=== PATIENT | female | born 1945 | race African-American/Black ===

== ENCOUNTER 2017-03-11 18:00 | Inpatient (IN) ==
[2017-03-11 19:04] LABS: MANUAL DIFF NEEDED? NO
[2017-03-11 19:06] LABS: BASO% 0.5 % (0.0-0.8); EOS# 0.11 X1000 (0.0-0.7); EOS% 1.3 % (0.0-10.0); HEMATOCRIT 39.2 % (37.0-47.0); HEMOGLOBIN 12.5 g/dL (12.0-16.0); IMM GRAN# 0.13 X1000 (0.0-0.04); IMM GRAN% 1.6 % (0.0-0.5); LYMPH# 3.54 X1000 (1.2-3.4); LYMPH% 42.6 % (20.5-51.1); MCH 29.7 PG (27-31); MCHC 31.9 g/dL (33-37); MCV 93.1 FL (81-99); MONO# 0.92 X1000 (0.11-0.59); MONO% 11.1 % (1.7-9.3); MPV 11.3 FL (7.4-10.4); NEUT% 42.9 % (42.2-75.2); PLT 165 X1000 (130-400); RBC 4.21 XMIL (4.2-5.4)
[2017-03-11 19:23] LABS: ALBUMIN 3.3 g/dL (3.5-5.0); POTASSIUM 4.2 mmol/L (3.5-5.1); TOTAL BILIRUBIN 0.16 mg/dL (0.20-1.00); TOTAL PROTEIN 6.9 g/dL (6.3-8.3)
[2017-03-11] MEDS ORDERED: NS 1,000 ML IV ONE (19:39)
[2017-03-11 20:32] LABS: URINE MICRO REVIEW NEEDED? NO; URINE SOURCE CATH
[2017-03-11 20:37] LABS: BILIRUBIN URINE SMALL (NEGATIVE); BLOOD URINE SMALL (NEGATIVE); COLOR YELLOW; GLUCOSE URINE 150 mg/dL (NEGATIVE); LEUKOCYTES URINE LARGE (NEGATIVE); NITRITE URINE NEGATIVE (NEGATIVE); PH URINE 5.5; PROTEIN URINE 30 mg/dL (NEGATIVE); SP GRAVITY URINE 1.024; TURBIDITY URINE HAZY (CLEAR); UROBILINOGEN URINE NORMAL (NORMAL)
[2017-03-11 20:39] LABS: UR EPITHELIAL CELLS <10 /HPF (<10); URINE BACTERIA 1+ /HPF; URINE CULTURE NEEDED? YES; URINE RBC 20-40 /HPF (<10); URINE WBC TNTC /HPF (<10)
[2017-03-11] MEDS ORDERED: ROCEPHIN 1 GM/NS 1 GM/50 ML IVPB IV ONE ×2 (20:47→20:48)
[2017-03-12] MEDS ORDERED: ZOFRAN IV PRN (01:03)
[2017-03-12] MEDS: NS 1,000 ML IV SCH ×2 (04:29→17:52)
--- NOTE | 2017-03-12 05:58 | HISTORY AND PHYSICAL ---
PRIMARY CARE PHYSICIAN: Dr. Argueta. CHIEF COMPLAINT: Mental status changes. HISTORY OF PRESENTING ILLNESS: A 72-year-old female with a history of diabetes mellitus type 2, dementia, GERD, and hypothyroidism, who is a resident of [facility]. Was brought to the emergency department due to mental status changes. Patient could not offer much history, and most of the history was obtained from her previous records. However, patient was able to deny having any headache, fever, chills, chest pain, or shortness of breath. The patient was evaluated in the ER. She was found to have a florid UTI. She was put on antibiotics, and she will need hospitalization for further management. PAST MEDICAL HISTORY: Includes diabetes mellitus type 2, GERD, hypothyroidism, dementia. PAST SURGICAL HISTORY: None. ALLERGIES: No known drug allergies. CURRENT MEDICATIONS: As listed in the MAR. SOCIAL HISTORY: No history of smoking, alcohol, or illicit drug use. FAMILY HISTORY: No history of coronary artery disease. REVIEW OF SYSTEMS: Limited, due to patient being confused. PHYSICAL EXAMINATION: GENERAL: Cooperative, friendly female. She is resting comfortably. VITAL SIGNS: Temperature 98.1 degrees, pulse 59, respirations 16, blood pressure 127/73. She is saturating 100%. HEENT: Atraumatic, normocephalic. Extraocular movements intact. NECK: No masses. CHEST: Clear to auscultation. CARDIOVASCULAR: Regular rate and rhythm. ABDOMEN: Soft. Positive bowel sounds. EXTREMITIES: No edema. NEUROLOGIC: She is alert. However, she is not oriented to person, time, or place. GENITOURINARY: No bladder distention. SKIN: Warm. LABORATORIES AND STUDIES: UA shows +1 bacteria and leukocytes. WBCs 8.31, hemoglobin 12.5, hematocrit 39.2, platelets 165,000. Sodium 147, potassium 4.2, chloride 105, CO2 27, BUN is 31, creatinine is 2.3, glucose is 134. ASSESSMENT: A 72-year-old female with a history of diabetes mellitus type 2, GERD, hypothyroidism, and dementia, who presented to the emergency department due to worsening confusion. She was evaluated in the ER. She was found to have a urinary tract infection, and was in renal failure. The patient will need hospitalization for further management. 1. Altered mental status, multifactorial, probably secondary to infection versus underlying dementia. 2. Urinary tract infection. 3. Acute kidney injury, possibly volume depletion. 4. Diabetes mellitus type 2. 5. Dementia. PLAN: 1. We will admit patient to medical floor with telemetry. 2. Continue with neurologic checks. 3. We will check urine cultures and blood cultures and start patient on IV antibiotics. 4. We will monitor renal function. 5. Put patient on sliding scale insulin regimen. 6. We will resume her home medications. 7. We will put patient on DVT prophylaxis with SCDs. 8. We will continue to follow and reassess. cc: Maxime Hsu MD
[2017-03-12] MEDS: HUMULIN R SUBQ SCH ×2 (06:09→13:04)
--- NOTE | 2017-03-12 07:57 | Diag Imaging Result Document ---
PROCEDURE NAME: CHEST-PORTABLE - 03/11/2017 AP PORTABLE CHEST AT 1850 HOURS: FINDINGS: There is no evidence of acute cardiac or pulmonary disease. Compared to 04/10/2016, there has been no significant change considering differences in technique and inspiration. IMPRESSION: Stable chest.
--- NOTE | 2017-03-12 08:41 | Diag Imaging Result Document ---
PROCEDURE NAME: ABDOMEN/PELVIS W/O CONTRAST - 03/12/2017 CT ABDOMEN AND PELVIS WITHOUT ORAL OR INTRAVENOUS CONTRAST: COMPARISON: 12/14/2012. FINDINGS: The spleen is not enlarged. There are scattered splenic granulomata. There are several small calcified stones within the gallbladder. No adjacent inflammation. Normal adrenal glands. Normal noncontrasted pancreas and liver. No perinephric inflammation. No renal stones. No hydronephrosis. No aortic aneurysm. There is stool throughout the colon. Normal appendix. No abscess. Prominent stool within the rectum. No free air. The urinary bladder is moderately distended and appears normal. The uterus is small. No pelvic mass. IMPRESSION: 1. Constipation and possible fecal impaction. 2. Cholelithiasis.
--- NOTE | 2017-03-12 08:44 | Diag Imaging Result Document ---
PROCEDURE NAME: NECK W/O CONTRAST - 03/12/2017 CT NECK WITHOUT CONTRAST: FINDINGS: There is a large right oropharyngeal mass measuring approximately 2.5 x 3.0 cm. I believe this involves the right tonsil. There are enlarged lymph nodes beneath the angle of the mandible on the right measuring up to 2.8 cm. Normal parotid and submandibular glands. Normal larynx and thyroid. No sinus opacification. IMPRESSION: Suboptimal exam without contrast, but there is a right-sided mass with adenopathy. Further workup recommended. [facility]
--- NOTE | 2017-03-12 09:53 | PROGRESS NOTE ---
DATE: 03/12/2017 SUBJECTIVE: Ms. Chavez is a 72-year-old, patient, resident of [facility], admitted with altered mental status. The patient was found to have elevated blood sugar at the long-term; it was more than 500. We gave her sliding-scale insulin. Her blood sugar came down to around 285. Nurse called me. The patient had altered mental status, increasing lethargy. We decided to send patient to the hospital. In the emergency room, the patient found to have acute kidney injury, significant urinary tract infection. The patient was getting treatment for acute pharyngitis. She is still complaining of sore throat. Mild cough. No expectoration. The patient does have dementia history part limited, vague abdominal pain. No nausea or vomiting. Denied any diarrhea. No typical chest pain or palpitation. Admission history and physical noted. PAST MEDICAL HISTORY: Significant for diabetes mellitus, hypertension, osteoarthritis, gastritis and reflux disease, dementia. MEDICATIONS: Noted. OBJECTIVE: Vital signs: Reviewed. Neck: Supple. No JVD. The patient does have tenderness right side of the neck in submandibular area. Uncooperative for pharyngeal exam. Neck: Supple. Lungs: Bilateral good air entry present. CVS: S1 and S2 heard. Abdomen: Soft, globular. Bowel sounds present. Vague tenderness left colonic area. No guarding or rigidity. Extremities: No cyanosis, clubbing. No acute DVT. CUSTOMER ACCOUNT EXECUTIVE: Alert, awake. Able to move all 4 limbs. ADMISSION LAB DATA: Revealed WBC count 8.31, hemoglobin 12.5, hematocrit 39.2, platelet count 165. BUN was 31, creatinine 2.3. Blood sugar results reviewed. Urinalysis did reveal significant UTI. CONSIDERATION: Patient admitted with delirium most likely due to urinary tract infection. The patient does have uncontrolled diabetes mellitus, acute kidney injury, abdominal pain with tenderness in the left colonic area. I am going to get CT scan of the abdomen and pelvis for further evaluation. The patient does have dementia, hypertension. PLAN: Admit the patient. IV hydration. GI and DVT prophylaxis. Monitor renal function. Overall plan discussed with the patient. Family member is not available. cc: Andrews Argueta MD
--- NOTE | 2017-03-12 15:20 | CONSULTATION ---
DATE OF CONSULTATION: 03/12/2017 HISTORY OF PRESENT ILLNESS: I was asked to see this patient regarding right tonsil lesion noted on CT scan. Patient states she has had a two-week history of sore throat and knot in her right neck. She is a poor historian with some confusion. She denies tobacco use. Denies dysphagia or odynophagia. Denies fever, night sweats, chills, or weight loss. PAST MEDICAL HISTORY: Reviewed. SOCIAL HISTORY: Reviewed. FAMILY HISTORY: Reviewed. REVIEW OF SYSTEMS: Noted. PHYSICAL EXAMINATION: Constitutional: Well-developed, well-nourished female. No distress. Face: Normal appearance. Oral cavity/pharynx: Right tonsil with neoplasia replacing tonsil. Normal extension beyond tonsillar fossa. Airway excellent. Remainder of mucosa appears normal. Neck: Enlarged, firm upper jugular chain nodes, right. IMPRESSION: Right tonsil neoplasia. I have discussed. Daughter is to call me this morning when she arrives for visit. We will discuss. Patient will need appointment at [facility], and I will ask daughter to call me at discharge and we will schedule appointment at [facility] for Ms. Chavez at that time. Thank you. Available if needed. cc: MD Andrews Espana MD
[2017-03-12] MEDS ORDERED: CATAPRES PO PRN (16:20)
[2017-03-12] MEDS ORDERED: MILK OF MAGNESIA PO PRN (16:20)
[2017-03-12] MEDS ORDERED: NORCO-5 PO PRN (16:20)
[2017-03-12] MEDS ORDERED: INSULIN PEN NEEDLES ONE (17:07)
[2017-03-12] MEDS: CELEXA PO SCH (17:20)
[2017-03-12] MEDS: EXELON 9.5MG/24HRS TD SCH (17:21)
[2017-03-12] MEDS: COZAAR PO SCH (17:21)
[2017-03-12] MEDS: PRILOSEC PO SCH (17:21)
[2017-03-12] MEDS: TENORMIN PO SCH (17:22)
[2017-03-12] MEDS: HUMALOG SUBQ SCH (20:36)
[2017-03-12] MEDS: ROCEPHIN 1 GM/NS 1 GM/50 ML IVPB IV SCH (20:37)
[2017-03-12] MEDS: DEPAKOTE PO SCH (20:37)
[2017-03-12] MEDS: COLACE PO SCH (20:38)
[2017-03-12] MEDS: COMTAN PO SCH (20:38)
[2017-03-12] MEDS: REMERON SOLTAB PO SCH (20:38)
[2017-03-12] MEDS: SINEMET 25/100 PO SCH (20:38)
[2017-03-12] MEDS: FOLIC ACID PO SCH (20:38)
[2017-03-12] MEDS: NAMENDA PO SCH (20:38)
[2017-03-12] MEDS: LEVEMIR SUBQ SCH (20:39)
[2017-03-12] MEDS: LYRICA PO SCH (20:39)
[2017-03-12] MEDS: LAMICTAL PO SCH (20:39)
[2017-03-12] MEDS ORDERED: STALEVO PO SCH (21:00)
[2017-03-13 05:41] LABS: MANUAL DIFF NEEDED? NO
[2017-03-13 05:47] LABS: BASO% 0.3 % (0.0-0.8); EOS# 0.08 X1000 (0.0-0.7); EOS% 1.2 % (0.0-10.0); HEMOGLOBIN 11.6 g/dL (12.0-16.0); IMM GRAN# 0.07 X1000 (0.0-0.04); LYMPH# 2.53 X1000 (1.2-3.4); LYMPH% 37.1 % (20.5-51.1); MCH 29.4 PG (27-31); MCHC 32.2 g/dL (33-37); MCV 91.4 FL (81-99); MONO# 0.73 X1000 (0.11-0.59); MONO% 10.7 % (1.7-9.3); MPV 12.1 FL (7.4-10.4); NEUT% 49.7 % (42.2-75.2); PLT 159 X1000 (130-400); RBC 3.94 XMIL (4.2-5.4)
[2017-03-13] MEDS: HUMALOG SUBQ SCH ×4 (06:09→22:05)
[2017-03-13] MEDS: SYNTHROID PO SCH (06:09)
[2017-03-13] MEDS: PRILOSEC PO SCH (06:09)
[2017-03-13] MEDS: NS 1,000 ML IV SCH ×2 (06:10→17:34)
[2017-03-13 06:19] LABS: AGAP 13; ALBUMIN 3.3 g/dL (3.5-5.0); ALKALINE PHOSPHATASE 66 U/L (32-104); BUN 13 mg/dL (8-22); CALCIUM 9.3 mg/dL (8.8-10.2); CHLORIDE 107 mmol/L (98-107); COSMO 293; GOT 17 U/L (10-30); GPT < 5 U/L (10-36); POTASSIUM 4.2 mmol/L (3.5-5.1); SODIUM 146 mmol/L (136-145); TCO2 26 mmol/L (25-35); TOTAL BILIRUBIN 0.23 mg/dL (0.20-1.00); TOTAL PROTEIN 7.3 g/dL (6.3-8.3)
[2017-03-13] MEDS: COZAAR PO SCH (09:26)
[2017-03-13] MEDS: LYRICA PO SCH ×2 (09:27→22:02)
[2017-03-13] MEDS: CENTRUM SILVER PO SCH (09:27)
[2017-03-13] MEDS: FOLIC ACID PO SCH ×2 (09:27→22:18)
[2017-03-13] MEDS: NORVASC PO SCH (09:27)
[2017-03-13] MEDS: CELEXA PO SCH (09:27)
[2017-03-13] MEDS: DEPAKOTE PO SCH ×2 (09:29→22:02)
[2017-03-13] MEDS: TENORMIN PO SCH (09:29)
[2017-03-13] MEDS: COLACE PO SCH ×2 (09:29→22:02)
[2017-03-13] MEDS: VITAMIN E PO SCH (09:30)
[2017-03-13] MEDS: NAMENDA PO SCH ×2 (09:30→22:01)
[2017-03-13] MEDS: LAMICTAL PO SCH ×2 (09:31→22:01)
[2017-03-13] MEDS: COMTAN PO SCH ×2 (09:32→22:01)
[2017-03-13] MEDS: SINEMET 25/100 PO SCH ×2 (09:32→22:02)
[2017-03-13] MEDS: EXELON 9.5MG/24HRS TD SCH (09:34)
--- NOTE | 2017-03-13 13:14 | PROGRESS NOTE ---
DATE: 03/13/2017 This is covering for Dr. Argueta, level 3. SUBJECTIVE: Interval history was reviewed. The patient is sitting at the bedside eating lunch. Patient does not need any assistance. The patient is demented, confused, and history is not reliable. She is a [facility] resident at [place] admitted to the hospital with altered mental status with underlying UTI and dehydration. REVIEW OF SYSTEMS: None reported. PAST MEDICAL HISTORY, PAST SURGICAL HISTORY, MEDICINES: Were reviewed. OBJECTIVE: Vital Signs: On physical examination afebrile. Vitals are stable. Intake and output positive 1.7 L. HEENT: Exam within normal limits. Unable to see the oral cavity. The patient does have right jugulodigastric lymph node, 2 cm, hard and palpable noted below and behind the angle of the mandible. Chest: Clear to auscultation. Heart: Sounds are regular. Belly is soft, obese, and nontender. Good bowel sounds. Extremities: Has antithrombotic stockings. Bunions are noted. Neurological exam: No obvious deficits seen. LABS/INVESTIGATIONS: CBC: White cell count 6.8, hematocrit 36, platelets 159. SMA 7: Sodium 146, potassium 4.2, chloride 107. BUN 13, creatinine 1.0, glucose 135. Liver function tests were normal. Urine cultures are positive for gram-negative rods. Blood cultures are pending. CT neck on 03/12/2017: Right-sided tonsillar mass with adenopathy. CT scan of the abdomen and pelvis: Constipation and gallstones. Chest x-ray: Stable. ASSESSMENT AND PLAN: 1. Altered mental status with underlying dementia, slowly improving. 2. History of Parkinson disease on levodopa oral twice daily and Comtan 200 mg oral twice daily. 3. Reactive depression on Celexa 20 mg daily. 4. Urinary tract infection. Follow up on the urine for culture and sensitivity. Currently receiving ceftriaxone 1 g every 24 hours. 5. Dehydration on intravenous fluids. If the sodium comes back normal, will decrease the intravenous fluids. 6. Dementia with underlying Parkinson disease on Namenda and Exelon patch. 7. Right tonsillar mass with jugular digastric lymph node seen by Dr. Sands. Will be followed as an outpatient. 8. Deep venous thrombosis prophylaxis with antithrombotic stockings. We will check the SMA 7 in the morning. Follow up on urine culture and sensitivity. No family was there at the bedside. LEVEL OF DOCUMENTATION: 35 minutes. cc: MD Andrews Rawls MD
[2017-03-13] MEDS: ROCEPHIN 1 GM/NS 1 GM/50 ML IVPB IV SCH (22:01)
[2017-03-13] MEDS: REMERON SOLTAB PO SCH (22:02)
[2017-03-13] MEDS: LEVEMIR SUBQ SCH (22:05)
[2017-03-14 06:23] LABS: AGAP 14; BUN 7 mg/dL (8-22); CALCIUM 8.8 mg/dL (8.8-10.2); CHLORIDE 109 mmol/L (98-107); COSMO 295; POTASSIUM 4.4 mmol/L (3.5-5.1); SODIUM 148 mmol/L (136-145); TCO2 25 mmol/L (25-35)
[2017-03-14] MEDS: SYNTHROID PO SCH (06:25)
[2017-03-14] MEDS: PRILOSEC PO SCH (06:25)
[2017-03-14] MEDS: NS 1,000 ML IV SCH (07:45)
[2017-03-14] MEDS: HUMALOG SUBQ SCH ×3 (07:45→17:01)
[2017-03-14] MEDS: COLACE PO SCH ×2 (10:12→22:56)
[2017-03-14] MEDS: COZAAR PO SCH (10:12)
[2017-03-14] MEDS: FOLIC ACID PO SCH ×2 (10:13→22:55)
[2017-03-14] MEDS: CENTRUM SILVER PO SCH (10:13)
[2017-03-14] MEDS: DEPAKOTE PO SCH ×2 (10:13→22:55)
[2017-03-14] MEDS: CELEXA PO SCH (10:14)
[2017-03-14] MEDS: LAMICTAL PO SCH ×2 (10:17→22:55)
[2017-03-14] MEDS: LYRICA PO SCH ×2 (10:18→22:56)
[2017-03-14] MEDS: TENORMIN PO SCH (10:18)
[2017-03-14] MEDS: VITAMIN E PO SCH (10:18)
[2017-03-14] MEDS: NAMENDA PO SCH ×2 (10:19→22:56)
[2017-03-14] MEDS: SINEMET 25/100 PO SCH ×2 (10:19→22:55)
[2017-03-14] MEDS: NORVASC PO SCH (10:19)
[2017-03-14] MEDS: COMTAN PO SCH ×2 (10:20→22:55)
[2017-03-14] MEDS: EXELON 9.5MG/24HRS TD SCH (10:22)
[2017-03-14] MEDS ORDERED: NS 1,000 ML IV SCH (13:24)
[2017-03-14] MEDS ORDERED: VANCOMYCIN IV PER PHARMACY MISC SCH (13:30)
--- NOTE | 2017-03-14 15:21 | PROGRESS NOTE ---
DATE: 03/14/2017 SUBJECTIVE: Patient is doing very well. No complaints for the last 24 hours. REVIEW OF SYSTEMS: None reported. Eating very well without assistance. OBJECTIVE: Vital signs: Afebrile. Pulse is 66, blood pressure is 150/78. HEENT: Within normal limits. Neck: Supple. No lymphadenopathy. Chest: Clear. Heart: Sounds are regular. Abdomen: Belly is soft, nontender. Good bowel sounds. Extremities: No peripheral edema, cyanosis, clubbing. DIAGNOSTICS: SMA7: Sodium 148, potassium 4.4, chloride 109, BUN 7, creatinine 0.9, glucose 154, urinalysis positive for enterococcus faecalis, resistant to penicillin, sensitive to vancomycin. ASSESSMENT AND PLAN: 1. Azotemia is improving. Renal function test came back normal. 2. We will decrease the intravenous fluids 50 mL/hour. 3. Enterococci faecalis resistant to penicillin. Discontinue ceftriaxone. Change to IV vancomycin. Subsequently he can use Macrodantin. 4. Type 2 diabetes. Well controlled. 5. Parkinsonism. Dementia stable. 6. Disposition: Dr. Argueta will follow up. Hopefully, she will be discharged soon to the rehab placement. LEVEL OF DOCUMENTATION: 25 minutes. cc: MD Andrews Rawls MD
[2017-03-14] MEDS ORDERED: VANCOMYCIN 1.5 GM in NS 250 ML IV SCH (16:00)
[2017-03-14] MEDS: LEVEMIR SUBQ SCH (22:56)
[2017-03-14] MEDS: REMERON SOLTAB PO SCH (22:56)
[2017-03-15] MEDS: HUMALOG SUBQ SCH ×2 (05:03→06:38)
[2017-03-15] MEDS: SYNTHROID PO SCH (06:37)
[2017-03-15] MEDS: PRILOSEC PO SCH (06:37)
[2017-03-15 07:26] VITALS: BP 177/74
[2017-03-15] MEDS: LAMICTAL PO SCH (09:34)
[2017-03-15] MEDS: SINEMET 25/100 PO SCH (09:34)
[2017-03-15] MEDS: FOLIC ACID PO SCH (09:34)
[2017-03-15] MEDS: CENTRUM SILVER PO SCH (09:35)
[2017-03-15] MEDS: TENORMIN PO SCH (09:35)
[2017-03-15] MEDS: VITAMIN E PO SCH (09:35)
[2017-03-15] MEDS: DEPAKOTE PO SCH (09:36)
[2017-03-15] MEDS: COZAAR PO SCH (09:36)
[2017-03-15] MEDS: COMTAN PO SCH (09:36)
[2017-03-15] MEDS: CELEXA PO SCH (09:36)
[2017-03-15] MEDS: NAMENDA PO SCH (09:36)
[2017-03-15] MEDS: LYRICA PO SCH (09:36)
[2017-03-15] MEDS: COLACE PO SCH (09:36)
[2017-03-15] MEDS: NORVASC PO SCH (09:36)
[2017-03-15] MEDS: EXELON 9.5MG/24HRS TD SCH (09:37)
--- NOTE | 2017-03-15 10:14 | DISCHARGE SUMMARY ---
ADMISSION DATE: 03/11/2017 DISCHARGE DATE: FINAL DISCHARGE DIAGNOSES: 1. Metabolic encephalopathy secondary to urinary tract infection. 2. Acute kidney injury. 3. Tonsillar mass with cervical adenopathy. 4. Dementia. 5. Insulin-dependent diabetes mellitus. 6. Hypertension. 7. Osteoarthritis. 8. Gastritis and reflux disease. 9. Hypothyroidism. 10. Situational depression. 11. Parkinson's disease. 12. Mood disorder. HISTORY OF PRESENT ILLNESS: Ms. Chavez is a 72-year-old, patient, a resident of [facility], admitted with altered mental status, increasing lethargy, weakness. The patient had elevated blood sugar. Found to have acute kidney injury and UTI. The patient evaluated in the ER, admitted for further care. The patient was treated with IV hydration, IV antibiotics, symptomatic treatment. The patient was complaining of sore throat. Had tender cervical adenopathy. The patient was on antibiotics. She was not responding. HOSPITAL COURSE: The patient was treated with IV fluid, IV antibiotics, symptomatic care. I did CT scan of the soft tissue of the neck and CT scan of the abdomen and pelvis. Her CT of the soft tissue of the neck did reveal tonsillar mass and cervical adenopathy. ENT consult obtained with Dr. Sands who evaluated patient and recommended to call his office after discharge. He is going to get her an appointment to [facility] for further evaluation. The patient's CT scan of the abdomen and pelvis did reveal constipation and possible fecal impaction, cholelithiasis but no evidence of cholecystitis. Overall, the patient is doing better. Her mental status improved. More alert and awake. Renal function showed improvement. Her initial BUN was 31, creatinine 2.3. Last one done yesterday, BUN was 7, creatinine was 0.9. CBC done on March 13, WBC count was 6.82, hemoglobin 11.6, hematocrit 36, platelet count was 159,000. PHYSICAL EXAMINATION: Vital Signs: Her vital signs noted. Neck: Neck was supple. No JVD. Patient does have a cervical adenopathy on the right but less tender. CVS: S1 and S2 heard. Abdomen: Soft, globular. Bowel sounds present. Extremities: No cyanosis, clubbing. No acute DVT. GRAPHIC DESIGN ASSISTANT: Alert, awake. Able to move all 4 limbs. Abdominal tenderness improved. DISCHARGE INSTRUCTIONS: Her urine culture grew Enterococcus faecium which was resistant to penicillin. Patient was given vancomycin in the hospital. It is sensitive to Macrobid and I am going to start the patient on Macrobid as an outpatient. Overall, patient is doing better. I did talk to her daughter on the telephone today about discharge planning. Follow up with [facility], to call Dr. Sands for an appointment. She is in agreement. We will monitor blood pressure closely. Use p.r.n. clonidine. Overall discharge condition satisfactory. We will monitor her blood pressure and Accu-Chek. cc: Andrews Argueta MD
--- NOTE | 2017-03-30 00:44 | PROVIDER DOCUMENTATION ---
This chart was entered by Imani Villegas Scribe, acting as scribe for Bronson Lofton MD. HPI-General Adult - General Chief Complaint: Altered Mental Status Stated Complaint: ams Time Seen by Provider: 03/11/17 18:24 Source: family, EMS Allergies/Adverse Reactions: Patient Allergies Allergy/AdvReac Type Severity Reaction Status Date / Time No Known Allergies Allergy Verified 03/11/17 18:49 Home Medications: Home Medication List Medication Instructions Recorded Confirmed Last Taken Type Amlodipine Besylate [Norvasc] 5 mg PO QAM 05/11/14 04/10/16 04/09/16 09:00 History Atenolol 25 mg PO QAM 05/11/14 04/10/16 04/09/16 09:00 History Celecoxib [Celebrex] 200 mg PO QAM 05/11/14 04/10/16 04/09/16 09:00 History Citalopram [Celexa] 20 mg PO DAILY 05/11/14 04/10/16 04/09/16 09:00 History Clonidine [Catapres] 0.1 mg PO Q6H PRN PRN 05/11/14 04/10/16 03/12/16 09:00 History Divalproex [Depakote] 500 mg PO BID 05/11/14 04/10/16 04/09/16 17:00 History Docusate Sodium 100 mg PO BID 05/11/14 04/10/16 04/09/16 17:00 History Folic Acid 1 mg PO BID 05/11/14 04/10/16 04/09/16 17:00 History Hydrochlorothiazide 12.5 mg PO QAM 05/11/14 04/10/16 04/09/16 09:00 History Hydrocodone/Acetaminophen [Royston 1 each PO Q6H PRN PRN 05/11/14 03/12/16 09:00 History 5-325 Tablet] Insulin Lispro [Humalog] 100 unit SQ DIRECTED 05/11/14 03/12/16 03/12/16 09: 00 History Lamotrigine [Lamictal] 50 mg PO BID 05/11/14 03/12/16 04/09/16 17:00 History Levothyroxine [Synthroid] 50 microgm PO QAM 05/11/14 04/10/16 04/10/16 06:00 History Losartan Potassium [Cozaar] 100 mg PO QAM 05/11/14 04/10/16 04/09/16 09:00 History Magnesium Hydroxide [Milk of 30 ml PO DAILY PRN PRN 05/11/14 04/10/16 03/12/16 09:00 History Magnesia] Memantine HCl [Namenda] 10 mg PO BID 05/11/14 04/10/16 04/09/16 17:00 History Metformin E.r. [Glucophage Xr] 1,500 mg PO QHS 05/11/14 04/10/16 04/09/16 21:00 History Mirtazapine [Remeron] 15 mg PO HS 05/11/14 03/12/16 04/09/16 21:00 History Multivit-Min/FA/Lycopene/Lut 1 each PO QAM 05/11/14 04/10/16 04/09/16 09:00 History [Centrum Silver Tablet] Omeprazole [Prilosec] 40 mg PO QAM 05/11/14 04/10/16 04/10/16 06:00 History Pregabalin [Lyrica] 50 mg PO BID 05/11/14 04/10/16 04/09/16 17:00 History Rivastigmine [Exelon 9.5MG/24Hrs] 1 each TD DAILY 05/11/14 04/10/16 04/09/16 09: 00 History Vitamin E 400 unit PO QAM 05/11/14 04/10/16 04/09/16 09:00 History l-Dopa/Carbidopa/Entacapone 50 mg PO BID 05/11/14 04/10/16 04/09/16 17:00 History [Stalevo 50] Insulin Detemir [Levemir] 16 units SQ HS #0 03/16/16 04/10/16 04/09/16 21:00 Rx - History of Present Illness -Gen Adult Nature of Presenting Problems: 72 Y/O F presents to ED with AMS. Pt lives in a health care center, called EMS, states pt was unresponsive, when pt was woken by EMS alert knows everything bt time, has a hx of short term memory, and hx of dementia. Pt c/o of left leg pain , left tenderness to left leg, Pt also c/o of Vomiting. Daughter states that this is Pt normal baseline, states healthcare calls EMS when Pt doesn't respond the way that they would like. Location of Pain/Injury: reports: lower extremity Pain Radiation: reports: no radiation Quality of Pain: reports: aching Severity: reports: moderate Onset/Duration: reports: other (states a few months) Timing: reports: still present Context/Activities at Onset: reports: none Associated Symptoms: reports: vomiting, other (leg pain). denies: cough, fever/ chills, shortness of breath Similar Symptoms Previously?: Yes Review of Systems - Adult - REVIEW OF SYSTEMS - ADULT Constitutional: denies: chills, fever Eyes: reports: no symptoms reported Ears, Nose, Mouth & Throat: reports: no symptoms reported Cardiovascular: reports: no symptoms reported Respiratory: reports: no symptoms reported Gastrointestinal: reports: vomiting. denies: nausea Genitourinary: reports: no symptoms reported Musculoskeletal: reports: muscle aches. denies: bone pain, back pain Integumentary: reports: no symptoms reported Neurological: reports: no symptoms reported Psychiatric: reports: no symptoms reported Endocrine: reports: no symptoms reported Hematologic/Lymphatic: reports: no symptoms reported Allergic/Immunologic: reports: no symptoms reported All Other Systems: Reviewed and Negative Past History - Adult - PAST MEDICAL HISTORY-ADULT Review of Records: reports: Old Records Reviewed, Nursing Assessment Review, Medications Reviewed, Social history reviewed & non-contributory. Cardiovascular: reports: HTN, hyperlipidemia Genitourinary: reports: kidney disease Musculoskeletal: reports: arthritis, chronic pain Neurological: reports: Alzheimer's, dementia Endocrine/Immune: reports: thyroid disorder - PRIOR SURGERIES/PROCEDURES Surgical/Procedure History: reports: hysterectomy - IMMUNIZATION STATUS Childhood Immunizations: See Nurse Assessment Flu Vaccine: See Nurse Assessment - SOCIAL HISTORY Smoking: non-smoker Substance Use: none/never Alcohol Use Frequency: never Living Situation: care facility Physical Exam-General - PHYSICAL EXAM-ADULT Initial Vital Signs Reviewed: Yes - CONSTITUTIONAL General Appearance: appears well, alert, no apparent distress - EYES Eyes: PERRL/EOMI, pink conjunctivae, fundi clear, no AV nicking - HEAD, EARS, NOSE, MOUTH & THROAT HENMT: normocephalic/atraumatic, moist mucous membranes, normal ENT inspection, TMs normal, pharynx normal - NECK Neck: non-tender, full range of motion, supple, normal inspection - RESPIRATORY Respiratory: chest non-tender, lungs clear, normal breath sounds - CARDIOVASCULAR Cardiovascular: normal peripheral pulses, regular rate, rhythm - GASTROINTESTINAL (ABDOMEN) Abdominal Exam: normal bowel sounds, non tender, soft - LYMPHATIC Lymphatic: no adenopathy - MUSCULOSKELETAL Back Exam: normal inspection, CVA tenderness (left side) Extremity: normal range of motion, tenderness (to left leg) - SKIN Integumentary: normal color, normal turgor, warm/dry - NEUROLOGIC Neurologic: business initiatives manager II-XII nml as tested, no motor/sensory deficits - PSYCHIATRIC Psych/Mental Status: normal mood/affect, normal thought content, normal thought process, oriented x 3 Progress - PLAN OF CARE/RESULTS Progress/Plan/Lab Results: Vital Signs - 8 hr 03/11/17 18:36 Pulse Rate 62 Respiratory Rate 16 Blood Pressure 120/72 O2 Sat by Pulse Oximetry 94 L Orders Category Date Time Status CHEST-PORTABLE [RAD] Stat Exams 03/11/17 18:32 Ordered CBC WITH ELECTRONIC DIFF [HEME] Stat Lab 03/11/17 18:32 Uncollected CMP [COMPREHENSIVE METABOLIC PANEL] [CHEM] Stat Lab 03/11/17 18:32 Uncollected UA NIMS W/REFLEX CULT [URINALYSIS] Stat Lab 03/11/17 18:32 Uncollected Result Diagrams: 03/11/17 18:55 03/11/17 18:55 - XRAY 1 XRAY Study: Chest Impression: Normal XRAY Interpretation: NAD - CONSULTS/PCP/HOSPITALIST Notification #1 *Consult/PCP/Hospitalist*: Dr. Hsu Time Discussed: 21:02 Reason/Comments: Admit Consult Disposition: Admit (Admit Accepted) Departure - Departure Time of Disposition Decision: 20:47 DIAGNOSIS: UTI (urinary tract infection), CECILIA (acute kidney injury) Disposition: ADMITTED INPATIENT 09 Certified Medical Emergency: Emergent Condition: Fair Referrals and Follow-Ups: None,PCP [Primary Care Provider] - - Critical Care Note This patient required my direct personal management.: No This chart was documented by the indicated scribe, (Imani Villegas Scribe) and accurately reflects the services I performed and decisions made by me, Bronson Lofton MD, as attested by the provider's signature.
== END 2017-03-15 13:03 ==
LOC: ED 18:00 → SUPCPDRO 21:48 → 4N 21:48 → SUATTDRO 21:48
PROVIDERS: ADMIT Internal Medicine; ATTEND Internal Medicine